=== PATIENT | male | born 1985 | race Hispanic/Latino ===

== ENCOUNTER 2017-01-31 06:23 | Emergency (ER) | payer OTHER ==
[2017-01-31 06:32] VITALS: RESP 18; TEMP 98.2
--- NOTE | 2017-01-31 07:27 | ED PDOC ---
Arrival/HPI - General Chief Complaint: Lower Extremity Problem/Injury Time Seen by Provider: 01/31/17 07:13 Historian: Patient - History of Present Illness Narrative History of Present Illness (Text): 01/31/17 07:21 Rudi Green is a 31 year old male who presents to the emergency department complaining of pain and swelling to his left ankle for a few hours. Patient states that he rolled his ankle about 1 month ago which became swollen and bruised but resolved. However, before going to sleep last night, the patient began to feel pain in his left ankle and woke up this morning to swelling, prompting patient to come to emergency department. Patient notes that he cannot put his weight on his left ankle and his pain worsens upon movement. Patient says that he took 2 tablets of Motrin to some relief. Patient denies any fevers , chill, back pain, neck pain, or any other complaints at this time. PMD: None Time/Duration: 1-3 hours Symptom Onset: Gradual Symptom Course: Unchanged Severity Level: Mild Activities at Onset: Light Context: Home Past Medical History - Provider Review Nursing Documentation Reviewed: Yes - Psychiatric Hx Substance Use: No Family/Social History - Physician Review Nursing Documentation Reviewed: Yes Family/Social History: No Known Family HX Smoking Status: Light Smoker < 10 Cigarettes Daily Hx Alcohol Use: No Hx Substance Use: No Allergies/Home Meds Allergies/Adverse Reactions: Allergies No Known Allergies Allergy (Verified 01/31/17 06:29) Review of Systems - Physician Review All systems were reviewed & negative as marked: Yes - Review of Systems Musculoskeletal: Other (swelling to left ankle) Physical Exam Vital Signs Reviewed: Yes Vital Signs Temp Pulse Resp BP Pulse Ox 01/31/17 08:57 80 18 144/80 01/31/17 07:10 73 18 128/74 98 01/31/17 06:24 98.2 F 80 18 137/80 96 Temperature: Afebrile Blood Pressure: Normal Pulse: Regular Respiratory Rate: Normal Appearance: Positive for: Well-Appearing, Non-Toxic, Comfortable Pain Distress: None Mental Status: Positive for: Alert and Oriented X 3 - Systems Exam Head: Present: Atraumatic, Normocephalic Pupils: Present: PERRL Extroacular Muscles: Present: EOMI Conjunctiva: Present: Normal Mouth: Present: Moist Mucous Membranes Neck: Present: Normal Range of Motion Respiratory/Chest: Present: Clear to Auscultation, Good Air Exchange. No: Respiratory Distress, Accessory Muscle Use Cardiovascular: Present: Regular Rate and Rhythm, Normal S1, S2. No: Murmurs Abdomen: Present: Normal Bowel Sounds. No: Tenderness, Distention, Peritoneal Signs Back: Present: Normal Inspection Upper Extremity: Present: Normal Inspection. No: Cyanosis, Edema Lower Extremity: Present: Tenderness (lateral malleolus), Swelling (lateral malleolus) Neurological: Present: GCS=15, CN II-XII Intact, Speech Normal Skin: Present: Warm, Dry, Normal Color. No: Rashes Psychiatric: Present: Alert, Oriented x 3, Normal Insight, Normal Concentration Medical Decision Making ED Course and Treatment: 01/31/17 07:21 Impression: 31 year old male complaining of pain and swelling to his left ankle since waking up this morning. Differential Diagnosis included but are not limited to: r/o Fracture Plan: -- Left Ankle X-ray -- Tylenol -- Reassess and disposition Progress Notes: 01/31/17 08:35 Reviewed radiology, Left ankle x-ray results are negative. 01/31/17 08:36 On reevaluation, patient feels better. Will be discharged with a elaina wrap and crutches with instructions by me. Patient instructed to use Motrin for inflammation and to follow up with primary care physician. - RAD Interpretation Radiology Orders: 01/31/17 07:26 ANKLE LEFT 3 VIEWS ROUTINE [RAD] Stat - Medication Orders Current Medication Orders: Discontinued Medications Acetaminophen (Tylenol 325mg Tab) 650 mg PO STAT STA Stop: 01/31/17 07:27 Last Admin: 01/31/17 07:41 Dose: 650 mg - Scribe Statement The provider has reviewed the documentation as recorded by the Kelsi Landin Provider Scribe Attestation: All medical record entries made by the Kelsi were at my direction and personally dictated by me. I have reviewed the chart and agree that the record accurately reflects my personal performance of the history, physical exam, medical decision making, and the department course for this patient. I have also personally directed, reviewed, and agree with the discharge instructions and disposition. Disposition/Present on Arrival - Present on Arrival Any Indicators Present on Arrival: No History of DVT/PE: No History of Uncontrolled Diabetes: No Urinary Catheter: No History of Decub. Ulcer: No History Surgical Site Infection Following: None - Disposition Have Diagnosis and Disposition been Completed?: Yes Diagnosis: Ankle pain Disposition: HOME/ ROUTINE Disposition Time: 08:57 Patient Plan: Discharge Condition: IMPROVED Discharge Instructions (ExitCare): Ankle Sprain (ED) Additional Instructions: Mr Green, thank you for letting us take care of you today. Your provider was Dr. Flores. You were treated for Ankle Pain. The emergency medical care you received today was directed at your acute symptoms. If you were prescribed any medication, please fill it and take as directed. It may take several days for your symptoms to resolve. Return to the Emergency Department if your symptoms worsen, do not improve, or if you have any other problems. Please contact your doctor or call one of the physicians/clinics you have been referred to that are listed on the Patient Visit Information form that is included in your discharge packet. Bring any paperwork you were given at discharge with you along with any medications you are taking to your follow up visit. Our treatment cannot replace ongoing medical care by a primary care provider (PCP) outside of the emergency department. Thank you for allowing the [facility] team to be part of your care today. If you had an X-Ray or CT scan: A Radiologist will review the ED reading if any change in treatment is needed we will contact you. If you had a blood, urine, or wound culture: It will take several days for the results, if any change in treatment is needed we will contact you. If you had an STI test: It will take 48 hours for the results. Please call after 1 week if you have not heard back. Prescriptions: Ibuprofen [Motrin] 600 mg PO Q6 PRN #30 tab PRN Reason: Pain, Moderate (4-7) Referrals: [facility] Miguel White, [Primary Care Provider] - Follow up with primary Falguni Anguiano MD [Staff Provider] - Follow up with primary Forms: [employer] (Mauritanian), WORK NOTE
[2017-01-31 08:17] VITALS: O2SAT 98
[2017-01-31 08:58] VITALS: BP 144/80; PULSE 80
--- NOTE | 2017-01-31 09:10 | RAD ---
PROCEDURE: Left Ankle Radiographs. HISTORY: pain r/o fx COMPARISON: None FINDINGS: BONES: Normal. No fracture. JOINTS: Normal. No osteoarthritis. Ankle mortise maintained. Talar dome intact SOFT TISSUES: Normal. OTHER FINDINGS: None. IMPRESSION: Normal left ankle radiographs.
== END 2017-01-31 08:58 | disposition home or self-care (01) ==
LOC: ED 06:23
DX: M25.572 Pain in left ankle and joints of left foot (principal)